=== PATIENT | female | born 1955 | race Caucasian/White ===

== ENCOUNTER 2016-07-06 08:05 | Inpatient (IN) | payer MEDICARE, MEDICAID ==
[~2016-07-06 08:05] MED LIST: VANCOMYCIN HCL 1 GM in DEXTROSE 5 % IN WATER 250 ML IV PRN; ceFAZolin SODIUM 1 GM VIAL IV PRN
--- NOTE | 2016-07-06 10:42 | PREOP NOTE ---
Preoperative Progress Note - Preoperative Changes Changes to Preop Condition?: No Changes
[2016-07-06] MEDS: RINGERS SOLUTION,LACTATED 1,000 ML IV PRN ×2 (10:44→11:10)
[2016-07-06] MEDS: ROPIVACAINE HCL/PF 100 MG, KETOROLAC TROMETHAMINE 30 MG, EPINEPHrine 0.2 MG in NORMAL S... IJ PRN ×2 (12:16→12:30)
[2016-07-06] MEDS: TRANEXAMIC ACID 1,000 MG in NORMAL SALINE 100 ML IV PRN ×3 (12:16→12:45)
[2016-07-06] MEDS ORDERED: RINGERS SOLUTION,LACTATED 1,000 ML IV ONE (13:10)
[2016-07-06] MEDS ORDERED: PROMETHAZINE HCL 5 MG in DEXTROSE 5 % IN WATER 50 ML IV PRN ×2 (13:24)
[2016-07-06] MEDS ORDERED: MAG HYDROX/ALUMINUM HYD/SIMETH 30 ML UDC PO PRN (13:24)
[2016-07-06] MEDS ORDERED: ONDANSETRON HCL/PF 2 MG/ML VIAL IV PRN (13:24)
[2016-07-06] MEDS ORDERED: diphenhydrAMINE HCL 50 MG/ML VIAL IV PRN (13:24)
[2016-07-06] MEDS ORDERED: MAGNESIUM HYDROXIDE 30 ML UDC PO PRN (13:24)
[2016-07-06] MEDS ORDERED: HYDROmorphone HCL 1 MG/ML DISP.SYRIN IV PRN (13:24)
[2016-07-06] MEDS ORDERED: ACETAMINOPHEN 500 MG TABLET PO PRN (13:24)
[2016-07-06] MEDS ORDERED: ZOLPIDEM TARTRATE 5 MG TABLET PO PRN (13:24)
[2016-07-06] MEDS ORDERED: METHOCARBAMOL 500 MG TABLET PO PRN (13:26)
[2016-07-06] MEDS ORDERED: ALBUTEROL SULFATE 2.5 MG/0.5 ML VIAL.NEB IH PRN (13:26)
[2016-07-06] MEDS ORDERED: clonazePAM 0.5 MG TABLET PO PRN (13:30)
--- NOTE | 2016-07-06 13:31 | OR ---
Operative Report - Dictated Report Narrative: Date: 07/06/2016 Preoperative diagnosis: Right Knee degenerative joint disease. Postoperative diagnosis: Right Knee degenerative joint disease. Procedure: Right Total knee arthroplasty. Surgeon: Evaristo Ferreira M.D. Decontaminator: Darryl Goldman PA-C Anesthesia: Spinal with regional block and local periarticular joint injection. Complications: None Specimens: Bone for disposal. Estimated blood loss: Minimal. Tourniquet time: 85 Minutes at 350 millimeters of mercury. Retained implants: Depuy Attune size 7 right lugged cemented posterior stabilized femoral component. Size 6 fixed-bearing cemented tibial platform. 7 by 5 millimeter posterior stabilized cross-linked tibial insert. 38 millimeter medialized patella button. Indications: Mrs. Scott is a 60-year-old female who had long-standing bilateral knee arthrosis who previously underwent a left total knee arthroplasty. She had persistent right knee pain wished to proceed with a right total knee arthroplasty. This patient was followed in my clinic for period of time with significant complaints of right knee pain consistent with arthritic changes. They had failed conservative measures including, but not limited to, activity modification, passage of time, medications, and other conservative measures. Patient wished to proceed with surgical treatment. The risks, benefits, and alternatives were discussed in clinic. The risks of , blood clots, bleeding, infection, nerve/tendon blood vessel/ injury, malposition of components, intraoperative fracture, postoperative limited range of motion, persistent pain, failure of components, and need for additional procedures. Patient wished to proceed consent was obtained after answering all questions. Procedure: After marking the correct extremity on the floor, the patient was taken to the operating room. A timeout was performed. IV antibiotics consisting of Ancef and vancomycin were administered prior to the procedure. A regional followed by spinal anesthetic was induced by anesthesia on the operative table with all bony prominences well-padded. Patrick catheter was placed, and a bump was placed under the operative side buttock. SCDs and SWATI hose were utilized on the nonoperative leg. A well-padded tourniquet was applied to the operative thigh. The operative leg was then pre-scrubbed with alcoho,l prepped, and draped in a standard sterile fashion. After exsanguinating the extremity with an Esmarch bandage, the tourniquet was inflated. After marking out the anterior knee for standard incision centered over the patella, the skin was incised and dissected down to the joint retinaculum. The joint retinaculum was marked out as well as the horizontal axis of the patella, and a standard medial parapatellar arthrotomy was then made. The most proximal aspect of the quadriceps tendon and the patella tendon insertion were protected from release. A partial synovectomy was performed as well as a resection of the infrapatellar fat pad. The distal femoral fat pad proximal to the trochlea was also resected using cautery. The soft tissues were elevated off the medial aspect of the proximal tibia using a Nieto elevator ensuring that we did not transect the medial collateral ligament. Upon initial evaluation range of motion was approximately 0 degrees to 105 degrees of flexion. There were signs of advanced arthrosis in the medial, lateral, and patellofemoral joint spaces. There were large marginal osteophytes which were removed with a rongeur. The knee was hyperflexed and the patella was tucked laterally. Protecting the surrounding soft tissues with Homans, an entry drill was placed down the femoral canal using Whitesides line for guidance into the entry point. The intramedullary femoral alignment chaparro was utilized in order to cut the distal femur in 5 degrees of valgus resecting 10 millimeters of bone. Next the distal femur was sized to a size 7. A posterior referencing guide was utilized to place the distal femoral cutting block in 3 degrees of external rotation. This was pinned into place. The rotation was confirmed both visually and based on anatomic landmarks. The 4 in 1 cutting jig of the appropriate size was utilized in order to make all bony cuts. The angle wing was used to ensure no notching. Retractors were utilized in order to protect surrounding soft tissues. This cut did not result in any excessive notching. We then cut the box centered over the distal femur. This allowed for resection of the anterior and posterior cruciate ligaments. I then turned my attention to the preparation of the tibia. Using an extra medullary tibial alignment chaparro, 4 millimeters of bone was resected off the medial articular surface. This was made perpendicular to the mechanical axis of the joint with the alignment chaparro centered over the ankle mortise. The alignment chaparro was checked and was noted to be parallel to the mechanical axis, centered over the medial one third of the tibial tubercle, paralleling the anterior surface of the tibia. We then turned our attention to the remaining meniscus and soft tissues. These were removed while protecting the surrounding ligaments and soft tissues. The marginal osteophytes off the anterior, posterior, medial, lateral aspects of the femur and tibia were removed. The tibia was sized out to a size 6. Next the tibia was drilled and punched in an externally rotated position. Next the trial femur and a series of tibial inserts were utilized in order to allow for full extension and maximal flexion. It was found that a 5 millimeter insert gave the best range of motion and stability at multiple flexion points as well as at full extension there was less than 2 mm of gapping both medially and laterally. There is minimal anterior translation with the knee at 90 degrees of flexion and no signs of being able to dislocate the knee. The patella was then prepared. The initial thickness was 21 millimeters. This was reamed down to 11 millimeters parallel to the anterior surface of the patella. It was sized out to a size 38 medialized patella button. This was then drilled and trialed. Without any medial restraint the patella tracked appropriately and did not sublux or dislocate. At this point, it was felt these were the appropriate sized implants, and all trials were removed. The standard periarticular joint injection consisting of ropivacaine, Toradol, and epinephrine were injected into the periarticular joint tissues. The bony surfaces were thoroughly irrigated with a pulsatile- suction saline irrigation device. A bone plug from the prior resected anterior chamfer cut was placed into the drill hole at the distal femur. The bony surfaces were then dried in preparation for placement of the implants. The cement was vacuum mixed per the superintendent marine oil [employer]'s instructions. The cement was placed on the dry bony surfaces and posterior aspect of the implants. The implants were impacted into place, removing all extruded cement. At this point anesthesia administered tranexamic acid per protocol intravenously. The knee was placed in extension with axial loading with the trial insert while the cement cured. Once the cement cured, all remaining extruded cement was removed. The knee was placed through a range of motion with the trial insert to ensure appropriate range of motion and stability. Final range of motion was approximately 0 to 115 degrees. The knee was again thoroughly irrigated with pulsatile saline lavage. The final polyethylene insert was then impacted into place ensuring no retained soft tissues. The remaining periarticular joint injection was injected. A medium Hemovac drain was placed exiting superior laterally. The knee was then placed over a triangle and the arthrotomy was closed with interrupted #1 Vicryl after thoroughly irrigating the joint. The deep and subcutaneous tissues were closed with interrupted oh and 3-0 Vicryl respectively. Skin was closed with a running subcutaneous 3-0 Monocryl and kelton. Xeroform, 4 x 4's, ABD, Sof-Rol, and a full leg Kan wrap were applied. All sponge, needle, blade, and instrument counts were correct prior to closing the wounds. Postoperative condition: The patient was awoken and transferred to the postanesthesia care unit in stable condition. Plan is to be admitted to the inpatient medical/surgical floor postoperatively for 24 hours of IV antibiotics , physical therapy, occupational therapy, and medical comanagement. Patient will be weightbearing as tolerated with range of motion as tolerated. DVT prophylaxis will be with SCDs, SWATI hose, and pharmacological anticoagulation. Anticipated hospital stay is approximately 2-4 days.
[2016-07-06] MEDS: DEXTROSE 5%-LACTATED RINGERS 1,000 ML IV PRN ×2 (15:52→23:39)
[2016-07-06] MEDS: KETOROLAC TROMETHAMINE 15 MG/ML VIAL IV SCH ×2 (16:51→23:41)
[2016-07-06] MEDS: GABAPENTIN 600 MG TABLET PO SCH (16:54)
[2016-07-06] MEDS: oxyCODONE HCL/ACETAMINOPHEN 1 TAB TABLET PO PRN ×2 (16:56→21:45)
[2016-07-06] MEDS: FLUTICASONE/SALMETEROL 14 PUFF DISK.W.DEV IH SCH (21:41)
[2016-07-06] MEDS: PANTOPRAZOLE SODIUM 40 MG TABLET.EC PO SCH (21:46)
[2016-07-06] MEDS: SENNOSIDES/DOCUSATE SODIUM 1 TAB TABLET PO SCH (21:46)
[2016-07-06] MEDS: MORPHINE SULFATE 15 MG TABLET.SA PO SCH (21:46)
[2016-07-06] MEDS: SIMVASTATIN 5 MG TABLET PO SCH (21:48)
[2016-07-06] MEDS ORDERED: VANCOMYCIN HCL 1 GM in DEXTROSE 5 % IN WATER 250 ML IV SCH ×2 (23:24)
[2016-07-07] MEDS: KETOROLAC TROMETHAMINE 15 MG/ML VIAL IV SCH ×5 (00:28→22:58)
[2016-07-07 05:49] LABS: Hematocrit 30.9 % (37.0-47.0); Hemoglobin 9.5 gm/dL (12.5-16.0); Mean Cell Volume 83.7 fl (78-100); Mean Corpuscular Hemoglobin 25.7 pg (27-31); Mean Corpuscular Hgb Conc 30.7 g/dl (32-36); Mean Platelet Volume 9.1 fl (6.0-9.5); Platelet Count 299 K/mm3 (150-450); Red Blood Count 3.69 M/mm3 (4.2-5.4); Red Cell Distribution Width 16.3 % (11.5-14.0); White Blood Count 9.2 K/mm3 (4.0-10.5)
[2016-07-07 06:00] LABS: Anion Gap 10.8 mmol/L (6.8-13.8); BUN/Creatinine Ratio 15.7 (9.0-21.6); Calcium * 8.5 mg/dL (7.9-10.9); Carbon Dioxide 27.1 mmol/L (24-32.6); Estimated Creat Clear 45.2; Potassium 3.9 mmol/L (3.4-4.6)
[2016-07-07] MEDS: PANTOPRAZOLE SODIUM 40 MG TABLET.EC PO SCH ×2 (06:48→20:39)
[2016-07-07] MEDS: MULTIVITAMINS 1 CAP CAPSULE PO SCH (08:39)
[2016-07-07] MEDS: CALCIUM CARBONATE/VITAMIN D3 1 TAB TABLET PO SCH (08:39)
[2016-07-07] MEDS: amLODIPine BESYLATE 10 MG TABLET PO SCH (08:39)
[2016-07-07] MEDS: DULoxetine HCL 30 MG CAPSULE.SA PO SCH (08:39)
[2016-07-07] MEDS: oxyCODONE HCL/ACETAMINOPHEN 1 TAB TABLET PO PRN (08:40)
[2016-07-07] MEDS: MORPHINE SULFATE 15 MG TABLET.SA PO SCH ×2 (08:40→20:44)
[2016-07-07] MEDS: FLUTICASONE/SALMETEROL 14 PUFF DISK.W.DEV IH SCH ×2 (08:40→20:38)
[2016-07-07] MEDS: TIOTROPIUM BROMIDE 5 CAP INHALER IH SCH (08:41)
[2016-07-07] MEDS: FUROSEMIDE 40 MG TABLET PO SCH (08:45)
[2016-07-07] MEDS: ENOXAPARIN SODIUM 40 MG/0.4 ML SYRG SC SCH (12:02)
[2016-07-07] MEDS ORDERED: HYDROcodone/ACETAMINOPHEN 1 EACH TABLET PO PRN (13:57)
--- NOTE | 2016-07-07 14:41 | PN ---
Subjective - Date and Time Seen Date: 07/07/16 Time: 08:00 Subjective Narrative: Subjective: Reports no concerns. Was able to get to the chair with therapy. Pain is well-controlled. Voiding without any complications. Tolerating by mouth intake. Denies any nausea or vomiting. Denies calf pain. Slept well. Physical exam: Alert and oriented to person, place and time Right lower Extremity: Palpable dorsalis pedis pulse. Sensation grossly intact to light touch. Dressings clean and dry. Able to flex and extend ankle and toes. No excessive drainage. Calf and thigh are soft and nontender. Assessment: Postop day 1 status post right total knee arthroplasty. Plan: Continue with physical and occupational therapy weightbearing as tolerated. Continue with anticoagulation. 24 hours postoperative prophylactic antibiotics. Pain control with goal to rely on oral medications. Continue bowel regimen. Will need 6 weeks with walker or assitive device to protect joint while ambulating during the recovery process. Discharge planning. Discontinue drain and Aptrick catheter. Repeat labs in a.m. Objective - Vitals Vitals: Last Vital Signs Temp 36.7 C 07/07/16 10:21 Pulse 86 07/07/16 10:21 Resp 20 07/07/16 10:21 BP 106/66 07/07/16 10:21 Pulse Ox 94 07/07/16 10:21 - Abnormal Lab Findings Abnormal Lab Findings: Abnormal Lab Results 07/07/16 07/07/16 Range/Units 05:39 05:39 RBC 3.69 L (4.2-5.4) M/mm3 Hgb 9.5 L (12.5-16.0) gm/dL Hct 30.9 L (37.0-47.0) % MCH 25.7 L (27-31) pg MCHC 30.7 L (32-36) g/dl RDW 16.3 H (11.5-14.0) % Est GFR (Non-Af Amer) 55 L (60-130) mL/min Random Glucose 116 H (70-110) mg/dL Cauti Physician Documentation - Urinary Catheter Management Urethral (Patrick) Date of Insertion: 07/06/16 Time of Insertion: 11:40 Date of Removal: 07/07/16 Time of Removal: 07:00 Assessment/Plan - Problems/Diagnosis (1) S/P total knee arthroplasty Problem: Acute (2) Acute blood loss anemia Problem: Acute (3) Asthma Problem: Chronic Qualifiers: Asthma severity: mild intermittent (4) Hypertension Problem: Chronic Qualifiers: Hypertension type: essential hypertension Qualified Code(s): I10 - Essential (primary) hypertension (5) Obesity Problem: Chronic Qualifiers: Obesity type: due to excess calories Obesity severity: morbid Qualified Code(s): E66.01 - Morbid (severe) obesity due to excess calories (6) OCD (obsessive compulsive disorder) Problem: Chronic (7) Urinary incontinence Problem: Chronic (8) Hyperlipidemia Problem: Chronic
[2016-07-07] MEDS: GABAPENTIN 600 MG TABLET PO SCH (16:35)
[2016-07-07] MEDS: SENNOSIDES/DOCUSATE SODIUM 1 TAB TABLET PO SCH (20:39)
[2016-07-07] MEDS: SIMVASTATIN 5 MG TABLET PO SCH (20:40)
[2016-07-08] MEDS: KETOROLAC TROMETHAMINE 15 MG/ML VIAL IV SCH ×2 (04:42→10:15)
[2016-07-08 05:48] LABS: Hematocrit 29.1 % (37.0-47.0); Hemoglobin 9.1 gm/dL (12.5-16.0); Mean Cell Volume 83.6 fl (78-100); Mean Corpuscular Hemoglobin 26.1 pg (27-31); Mean Corpuscular Hgb Conc 31.3 g/dl (32-36); Mean Platelet Volume 9.5 fl (6.0-9.5); Platelet Count 277 K/mm3 (150-450); Red Blood Count 3.48 M/mm3 (4.2-5.4); Red Cell Distribution Width 16.4 % (11.5-14.0); White Blood Count 6.8 K/mm3 (4.0-10.5)
[2016-07-08 06:00] LABS: Anion Gap 13.1 mmol/L (6.8-13.8); BUN/Creatinine Ratio 11.5 (9.0-21.6); Calcium * 8.2 mg/dL (7.9-10.9); Carbon Dioxide 29.6 mmol/L (24-32.6); Potassium 3.7 mmol/L (3.4-4.6)
[2016-07-08] MEDS: PANTOPRAZOLE SODIUM 40 MG TABLET.EC PO SCH (06:23)
[2016-07-08] MEDS: TIOTROPIUM BROMIDE 5 CAP INHALER IH SCH (08:56)
[2016-07-08] MEDS: FLUTICASONE/SALMETEROL 14 PUFF DISK.W.DEV IH SCH (08:57)
[2016-07-08] MEDS: CALCIUM CARBONATE/VITAMIN D3 1 TAB TABLET PO SCH (08:57)
[2016-07-08] MEDS: FUROSEMIDE 40 MG TABLET PO SCH (08:57)
[2016-07-08] MEDS: MORPHINE SULFATE 15 MG TABLET.SA PO SCH (08:57)
[2016-07-08] MEDS: DULoxetine HCL 30 MG CAPSULE.SA PO SCH (08:58)
[2016-07-08] MEDS: amLODIPine BESYLATE 10 MG TABLET PO SCH (08:58)
[2016-07-08] MEDS: MULTIVITAMINS 1 CAP CAPSULE PO SCH (08:58)
[2016-07-08 09:00] VITALS: BP 124/81
--- NOTE | 2016-07-08 10:27 | DS ---
(1) Acute blood loss anemia Problem: Acute (2) S/P total knee arthroplasty Problem: Acute (3) Asthma Problem: Chronic Qualifiers: Asthma severity: mild intermittent (4) Hyperlipidemia Problem: Chronic (5) Hypertension Problem: Chronic Qualifiers: Hypertension type: essential hypertension Qualified Code(s): I10 - Essential (primary) hypertension (6) OCD (obsessive compulsive disorder) Problem: Chronic (7) Obesity Problem: Chronic Qualifiers: Obesity type: due to excess calories Obesity severity: morbid Qualified Code(s): E66.01 - Morbid (severe) obesity due to excess calories (8) Urinary incontinence Problem: Chronic Description of Stay: Mrs. Scott was admitted to the floor after undergoing right total knee arthroplasty. Tolerated this well. Was admitted to the floor postoperatively for 24 hours of IV antibiotics, pain control, medical comanagement, and occupational and physical therapy. OT and PT were consulted to assist with activities of daily living and ambulation. Was made weightbearing as tolerated with range of motion as tolerated. Pain was initially controlled with IV regimen. This was transitioned to oral once tolerating a by mouth intake. Was resumed on home diet and medications. Had a Patrick catheter inserted and the operating room which was discontinued on postoperative day 1. A drain was placed intraoperatively into the knee which was discontinued on postoperative day 1. Lovenox SCD and SWATI hose were utilized for DVT prophylaxis. Vital signs remained stable to the hospital course. Serial labs were obtained which showed a final hemoglobin of 9.1 grams. BMP was reviewed and was stable. Physical examination throughout the hospital course showed an extremity that had sensation that was intact to light touch, palpable pulses, a benign wound, motor intact to the toes, ankle, and knee. Knee range of motion was approximately 0 degrees to 75 degrees. Once an oral pain regimen was tolerated and physical therapy goals were met, it was felt that they were stable for discharge to home. Instructions: Continue with weightbearing as tolerated and range of motion as tolerated. Keep the wound clean and dry. Cover with dry gauze and tape. Change every 2-3 days as needed. Cover wound while showering. Continue with physical therapy. Resume home diet. Report any fever over 101.5 Fahrenheit, uncontrolled pain, increased drainage, foul odor of drainage, new or increased calf pain or shortness of breath, or any other significant complaints. A 325mg dialy aspirin will be started after finishing anticoagulation if not allergic. Continue with SWATI hose on the operative extremity until instructed otherwise. No driving until instructed otherwise. Follow up in approximately 10-14 days. Procedures Performed: see notes below List Procedures: Right total knee arthroplasty Discharge Disposition: Home self care Disposition: Home self-care Condition: Good Referrals: Elena Brown MD [Primary Care Provider] - Prescriptions (Any new or edited meds): Albuterol Sulfate [Albuterol Sulfate 2.5 MG/0.5ML] 2.5 mg IH Q3H PRN #60 vial.neb PRN Reason: Shortness Of Breath Enoxaparin Sodium [Lovenox] 40 mg SC Q24H #8 disp.syrin HYDROcodone/ACETAMINOPHEN [[place] 5-325] 2 each PO Q4H PRN #90 tablet PRN Reason: Pain Morphine Sulfate [Ms Contin] 15 mg PO Q12H #30 tablet.sa Nebulizer/Compressor [Devilbiss Pulmoneb Lt Comp-Neb] 1 each MC PRN 30 Days Complete Home Medications List: Complete Home Medication List: Albuterol Sulfate [Proair Hfa] 2 puff IH Q3H PRN 06/15/16 Budesonide/Formoterol Fumarate [Symbicort 160-4.5 Mcg Inhaler] 2 puff IH BID Calcium Carb&Cit/Mag12/Vit D3 [Calcium 500 mg Tablet] 1 each PO DAILY 06/15/16 Duloxetine HCl [Cymbalta] 30 mg PO DAILY 06/15/16 Furosemide [Lasix] 40 mg PO DAILY 06/15/16 Gabapentin [Neurontin] 600 mg PO QPM 06/15/16 Lovastatin 10 mg PO HS 06/15/16 Methocarbamol [Robaxin] 500 mg PO Q6H PRN 06/15/16 Multivitamins [Multivitamin Santiago] 1 cap PO DAILY 06/15/16 Pantoprazole Sodium [Protonix] 40 mg PO BID 06/15/16 Tiotropium [place] [Spiriva] 1 cap IH DAILY 06/15/16 amLODIPine BESYLATE [Norvasc] 10 mg PO DAILY 06/15/16 clonazePAM [Klonopin] 0.5 mg PO HS PRN 06/15/16 Albuterol Sulfate [Albuterol Sulfate 2.5 MG/0.5ML] 2.5 mg IH Q3H PRN #60 vial.neb 07/08/16 Enoxaparin Sodium [Lovenox] 40 mg SC Q24H #8 disp.syrin 07/08/16 HYDROcodone/ACETAMINOPHEN [[place] 5-325] 2 each PO Q4H PRN #90 tablet 07/08/16 Morphine Sulfate [Ms Contin] 15 mg PO Q12H #30 tablet.sa 07/08/16 Nebulizer/Compressor [Devilbiss Pulmoneb Lt Comp-Neb] 1 each PRN 30 Days 01/14
[2016-07-08] MEDS: ENOXAPARIN SODIUM 40 MG/0.4 ML SYRG SC SCH (11:53)
== END 2016-07-08 12:50 | disposition home or self-care (01) | DRG 470 ==
LOC: MS 08:05
PROVIDERS: ADMIT Orthopaedic Surgery; ATTEND Orthopaedic Surgery
PROC: 0SRC0J9 Replacement of Right Knee Joint with Synthetic Substitute, Cemented, Open Approach (ICD-10-PCS; principal; 2016-07-06 11:45)
DX: M17.0 Bilateral primary osteoarthritis of knee (principal); Z68.43 Body mass index [BMI] 50.0-59.9, adult; D62 Acute posthemorrhagic anemia; I10 Essential (primary) hypertension; J45.20 Mild intermittent asthma, uncomplicated; J44.9 Chronic obstructive pulmonary disease, unspecified; E78.5 Hyperlipidemia, unspecified; R32 Unspecified urinary incontinence; E66.01 Morbid (severe) obesity due to excess calories; F42.9 Obsessive-compulsive disorder, unspecified; Z79.82 Long term (current) use of aspirin

== ENCOUNTER 2016-09-30 06:03 | Inpatient (IN) | payer MEDICARE, MEDICAID ==
[~2016-09-30 06:03] MED LIST changes: +MORPHINE SULFATE 15 MG TABLET.SA PO PRN; +ROPIVACAINE HCL/PF 100 MG, KETOROLAC TROMETHAMINE 30 MG, EPINEPHrine 0.2 MG in NORMAL S... IJ PRN; +TRANEXAMIC ACID 1,000 MG in NORMAL SALINE 100 ML IV PRN
--- OUTSIDE RECORDS SUMMARY | 2016-09-30 06:07 | XMS REPORT | Continuity of Care Document ---
:1955 Author Organization [facility] [place] [address] Care Team Providers Name Role Phone Elena Brown Primary Care Provider [phone] Source Comments This disclosure is being made pursuant to the Troppin program and maynot contain all information available regarding this patient.[facility] Active Allergies and Adverse Reactions Allergen Noted Date Severity Reactions Comments Codeine 08/07/2015 Other (See Comments) Chest pain Erythromycin 08/07/2015 Medium Nausea And Vomiting Current Medications Be aware that medications may not be up to date as of this document. Alwaysverify current medications with the patient. Prescription Sig. Disp. Refills Start Date End Date Status aspirin 81 MG tablet Take 81 mg by Active mouth daily. pantoprazole (PROTONIX) Take 40 mg by Active 40 MG tablet mouth daily. amLODIPine (NORVASC) 10 Take 10 mg by Active MG tablet mouth daily. CALCIUM PO Take 1,250 mg by Active mouth daily. clonazePAM (KLONOPIN) Take 0.5 mg by Active 0.5 MG tablet mouth nightly as needed for Anxiety. fluvoxaMINE (LUVOX) 100 Take 100 mg by Active MG tablet mouth every morning. Fluvoxamine Maleate Take 300 mg by Active (LUVOX) 150 MG capsule mouth nightly. ibuprofen Take 800 mg by Active (ADVIL,MOTRIN) 800 MG mouth 3 (three) tablet times daily as needed for Pain. ferrous sulfate 325 (65 Take 325 mg by Active FE) MG EC tablet mouth daily. lovastatin (MEVACOR) 10 Take 10 mg by Active MG tablet mouth nightly. methocarbamol (ROBAXIN) Take 1,000 mg by Active 500 MG tablet mouth 4 (four) times daily. Multiple Vitamin Take 1 tablet by Active (MULTI-VITAMIN DAILY mouth daily. PO) albuterol (PROAIR Inhale 2 puffs Active HFA;PROVENTIL into the lungs HFA;VENTOLIN HFA) 108 every 3 (three) (90 BASE) MCG/ACT hours as needed inhaler for Wheezing. budesonide-formoterol Inhale 2 puffs Active (SYMBICORT) 160-4.5 into the lungs 2 MCG/ACT inhaler (two) times daily. predniSONE (DELTASONE) 1 tablet bid for 7 tablet 0 08/12/2015 Active 20 MG tablet 2 days, then 1 tablet daily for 2 days, then 1/2 tablet daily for 2 days. traMADol (ULTRAM) 50 MG Take 1 tablet by 90 tablet 5 08/16/2015 Active tablet mouth 3 (three) times daily as needed for Pain. Active Problems Not on file Social History Tobacco Use Types Packs/Day Years Used Date Never Smoker Last Filed Vital Signs Vital Sign Reading Time Taken Blood Pressure 122/90 08/07/2015 3:44 PM [employer] Pulse 95 08/07/2015 3:44 PM [employer] Temperature - - Respiratory Rate - - Height 1.626 m (5' 4") 08/07/2015 3:44 PM [employer] Weight 134.265 kg (296 lb) 08/07/2015 3:44 PM [employer] Body Mass Index 50.78 08/07/2015 3:44 PM [employer] Oxygen Saturation - - Plan of Care Health Maintenance Due Date Last Done Comments Hepatitis C Screening 1972 Tetanus/Pertussis (1 - Tdap) 1973 Pap Smear 08/11/1975 Colonoscopy 2004 Mammogram 2004 Well Adult Visit 2004 Zoster Vaccine 60+ 2014 Influenza Immunization (#1) 2016 Results from Last 3 Months Not on file
--- OUTSIDE RECORDS SUMMARY | 2016-09-30 06:07 | XMS REPORT | Continuity of Care Document ---
:1955 Author Organization ([facility]) [place] [address] Phone [phone] Care Team Providers Name Role Phone Camron Vázquez Primary Care Provider [phone] Source Comments This disclosure is being made pursuant to the Care Everywhere program, applicable federal and state laws, and may not contain all informaitonavailable regarding this patient. ([facility]) Active Allergies and Adverse Reactions Allergen Noted Date Severity Reactions Comments Erythromycin Nausea & Vomiting Hydrocodone Nausea & Vomiting Phenyltoloxamine Nausea & Vomiting Current Medications Not on file Active Problems Not on file Social History Tobacco Use Types Packs/Day Years Used Date Never Assessed Last Filed Vital Signs Vital Sign Reading Time Taken Blood Pressure 117/84 08/09/2006 2:18 PM CDT Pulse 83 08/09/2006 2:18 PM CDT Temperature 36.4 C (97.52 F) 08/09/2006 2:18 PM CDT Respiratory Rate 16 08/09/2006 2:18 PM CDT Height 1.61 m (5' 3.38") 08/09/2006 2:18 PM CDT Weight 120.997 kg (266 lb 12 oz) 08/09/2006 2:18 PM CDT Body Mass Index 46.68 08/09/2006 2:18 PM CDT Oxygen Saturation - - Plan of Care Health Maintenance Due Date Last Done Comments Hepatitis B Vaccine (1 of 3 - Primary Series) 1955 Tdap Vaccine 1965 Lipid Disorder Screening 1972 Td Vaccine 1972 Cervical Cancer Screening 1984 Mammogram 1994 Colonoscopy 08/09/2004 Zoster Vaccine 2014 Influenza Vaccine: Seasonal (#1) 12/30/2015 HCV Screening Completed 05/17/1998 Results from Last 3 Months Not on file
[2016-09-30] MEDS: RINGERS SOLUTION,LACTATED 1,000 ML IV PRN ×2 (06:59→09:20)
[2016-09-30] MEDS ORDERED: PANTOPRAZOLE SODIUM 40 MG in NORMAL SALINE 100 ML IV ONE (09:26)
[2016-09-30] MEDS ORDERED: RINGERS SOLUTION,LACTATED 1,000 ML IV ONE ×2 (10:30→11:55)
[2016-09-30] MEDS ORDERED: PROMETHAZINE HCL 5 MG in DEXTROSE 5 % IN WATER 50 ML IV PRN ×2 (12:36)
[2016-09-30] MEDS ORDERED: HYDROmorphone HCL 1 MG/ML DISP.SYRIN IV PRN (12:36)
[2016-09-30] MEDS ORDERED: MAGNESIUM HYDROXIDE 30 ML UDC PO PRN (12:36)
[2016-09-30] MEDS ORDERED: ONDANSETRON HCL/PF 2 MG/ML VIAL IV PRN (12:36)
[2016-09-30] MEDS ORDERED: ACETAMINOPHEN 500 MG TABLET PO PRN (12:36)
[2016-09-30] MEDS ORDERED: MAG HYDROX/ALUMINUM HYD/SIMETH 30 ML UDC PO PRN (12:36)
[2016-09-30] MEDS ORDERED: oxyCODONE HCL/ACETAMINOPHEN 1 TAB TABLET PO PRN (12:36)
[2016-09-30] MEDS ORDERED: diphenhydrAMINE HCL 50 MG/ML VIAL IV PRN (12:36)
[2016-09-30] MEDS ORDERED: ZOLPIDEM TARTRATE 5 MG TABLET PO PRN (12:36)
[2016-09-30] MEDS ORDERED: TIOTROPIUM BROMIDE 5 CAP INHALER IH PRN (12:38)
[2016-09-30] MEDS ORDERED: FLUTICASONE/SALMETEROL 14 PUFF DISK.W.DEV IH PRN (12:38)
[2016-09-30] MEDS ORDERED: clonazePAM 1 MG TABLET PO PRN (12:38)
[2016-09-30] MEDS ORDERED: ALBUTEROL SULFATE 2.5 MG/3 ML VIAL.NEB IH PRN (12:38)
--- NOTE | 2016-09-30 12:43 | OR ---
Operative Report - Dictated Report Narrative: Date: 09/30/2016 Preoperative diagnosis: Left hip degenerative joint disease. Postoperative diagnosis: Left hip degenerative joint disease. Procedure: Left Total hip arthroplasty. (22 modifier due to morbid obesity requiring additional time, blood loss, assistance, and increased difficulty of performing the procedure) Surgeon: Evaristo Ferreira M.D. Toe Sewer: Darryl Goldman PA-C Anesthesia: Spinal and local periarticular joint injection. Complications: None Specimens: Bone for disposal. Estimated blood loss: 300 milliliters. Drains: Hemovac drain left hip, herrera catheter Retained implants: Depuy Marinette size 6 femoral stem high offset. Size 54 millimeter ouside diameter 3-hole Carrabelle Gription acetabular cup. 54 millimeter outside by 36 millimeter inside diameter highly cross-linked acetabular liner. 36 millimeter diameter + 0.5 millimeter cobalt chromium femoral head. Cancellous 6.5mm screw 25 and 30 millimeter length Indications: Mrs. 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 This patient was followed in my clinic for period of time with significant complaints of left hip pain consistent with arthritic changes. She failed conservative measures including but not limited to activity modification, passage of time, medications, and other conservative measures. Patient wished to proceed with surgical treatment. The risks, benefits, and alternatives were discussed in clinic. The risks of , blood clots, bleeding, infection, nerve/tendon blood vessel/ injury, malposition of components, dislocation and/ or instability of joint, intraoperative fracture, postoperative limited range of motion, persistent pain, failure of components, and need for additional procedures. Patient wished to proceed. Consent was obtained after answering all questions. Procedure: After marking the correct extremity on the floor, the patient was taken to the operating room. A timeout was performed. IV antibiotics consisting of Ancef and vancomycin secondary to history of MRSA were administered prior to the procedure. A spinal anesthetic was induced by anesthesia. A Herrera catheter was inserted. The patient was then transitioned to a lateral position on a well-padded pegboard. An axillary roll was placed. The head was in neutral position. The non-operative down leg was well-padded with SCD and SWATI hose in place. The arms were supported and padded to protect from any undue pressure on the bony prominences and nerves. A well-padded anterior and posterior pelvic and chest posts were secured in order to maintain a stable position of the pelvis. This was placed so that the pelvis was perpendicular to the floor. The body was in line with the pelvis. Once it was felt that we had protected all the bony prominences and the patient was well secured with a safety belt as well, the leg was pre-scrubbed with alcohol, prepped and draped in a standard sterile fashion. A standard anterior lateral hip incision was marked out over the greater trochanter. Ioban drapes were then placed. The skin incision was then made. Sharp dissection with a scalpel utilizing cautery for hemostasis was carried out down to the gluteus and iliotibial band fascia. This was split in line with the skin incision. The greater trochanter bursa was excised. The anterior and posterior margins of the abductor tendon were identified. The anterior 1/2-1/3 of the tendon was tagged and reflected off the greater trochanter leaving a sleeve of tendon for repair at the completion of the case. This exposed the underlying hip joint capsule. A limb length stitch was placed in the skin and referencedd off a pari on the greater trochanter for evaluation of intraoperative limb lengths. An inverted T-type capsulotomy was made extending this up to the brim of the acetabulum. Using Homans to assist with elevation of the soft tissues off the anterior, superior, and inferior aspects of the femoral neck, the hip was then placed in a figure 4 position and the femoral head was dislocated. With the leg in an externally rotated and adducted position, the cutting flag was utilized in order to pari for a standard femoral neck cut approximately a fingerbreadth above the level of the lesser trochanter. This was done with reference to pre-operative films and overall alignment. This was done while protecting the surrounding soft tissues with Homans. The femoral head was then removed and sized for guidance on preparation of the acetabulum. It was noted that there was loss of articular cartilage on both the femoral head and weightbearing portions of the acetabulum. We then returned the leg to the table and turned our attention to the acetabulum. While protecting the surrounding soft tissues, the labrum and remaining tissue in the fovea were excised using a scalpel and cautery. A series of reamers up to size 54 millimeter were utilized to prepare the acetabulum. The final reamer had good purchase and exposed the bleeding subchondral bone. The acetabulum was then thoroughly irrigated ensuring that all bony and cartilaginous materials were removed, and the final acetabular shell was impacted into place. This was placed in approximately 45 degrees of abduction and 20 degrees of anteversion utilizing the outrigger and body axis for alignment. This had a good press fit. Two 6.5mm cancellous screw was placed in the superior posterior quadrant of the acetabulum. The shell was then thoroughly irrigated and the final polyethylene was impacted into place ensuring that it seated completely. This was then protected with a sponge while we returned our attention to the femur. With the leg in a figure 4 position, utilizing Homans for soft tissue protection , a box cutting osteotome, followed by Charnley awl, followed by serial reamers and broaches were utilized in order to prepare the femur. It was found that a size 6 broach gave good axial and rotational stability. The calcar reamer was utilized in order to clean up the cut edges. The proximal femur was visualized to ensure that there were no signs of fracture. A series of heads and necks were trialed. It was found that a high offset neck and a + 8.5 mm femoral head gave good overall stability. There was minimal longitudinal instability. With the leg in the position of sleep, the femoral head was well covered. Hip range of motion was able to reach full extension and external rotation to greater than 75 degrees prior to impingement along the posterior acetabulum. The hip was able to be flexed to greater than 90 degrees with internal rotation greater than 60 degrees prior to anterior impingement. The limb lengths were near equal based on comparison to the contralateral side and the prior placed limb length stitch. At this point it was felt these were the appropriately sized femoral components as well as neck and femoral head. The trial implants were removed. The femur was thoroughly irrigated. The final implants were impacted into place, and the hip was reduced. After ensuring that there was no damage to the proximal femur , the standard periarticular joint injection of ropivacaine, Toradol, and epinephrine were injected into the joint capsule and surrounding soft tissues. Anesthesia then administered intravenous tranexamic acid. The capsule was repaired with a single interrupted #1 Vicryl. The abductor tendon was repaired to the greater trochanter utilizing #5 Ethibond through drill holes. This was oversewn with #1 Vicryl. The fascia was closed with interrupted #1 Vicryl. A medium Hemovac drain was placed above the fascia exiting superiorly. The wounds were thoroughly irrigated as we closed in layers. The deep and subcutaneous fat layers were closed with 0 and 3-0 Vicryl respectively. The subcutaneous tissue was closed with a running 3-0 Vicryl and the skin with kelton. All sponge, needle, blade, and instrument counts were correct prior to closing the wounds. Sterile dressings consisting of Xeroform, 4 x 4's, ABD, and tape were applied. The patient was awoken and transferred to her hospital bed and then to the postanesthesia care unit in stable condition. Postoperative condition: The plan is to admit to the medical/surgical inpatient floor postoperatively. There will be a projected 2 to 4 day hospital stay. Postoperatively 24 hours of IV antibiotics, pain control, physical therapy, occupational therapy, and medical comanagement will be utilized. Patient will be weightbearing as tolerated with anterior hip precautions. Postoperative films will be obtained in the recovery room.
[2016-09-30] MEDS: DEXTROSE 5%-LACTATED RINGERS 1,000 ML IV PRN ×2 (14:00→22:06)
[2016-09-30] MEDS: KETOROLAC TROMETHAMINE 15 MG/ML VIAL IV SCH ×2 (14:33→18:37)
[2016-09-30] MEDS: GABAPENTIN 300 MG CAPSULE PO SCH ×2 (17:33)
[2016-09-30] MEDS: MORPHINE SULFATE 15 MG TABLET.SA PO SCH (21:07)
[2016-09-30] MEDS: ROSUVASTATIN CALCIUM 10 MG TABLET PO SCH (21:08)
[2016-09-30] MEDS: PANTOPRAZOLE SODIUM 40 MG TABLET.EC PO SCH (21:08)
[2016-09-30] MEDS: SENNOSIDES/DOCUSATE SODIUM 1 TAB TABLET PO SCH (21:17)
[2016-09-30] MEDS ORDERED: VANCOMYCIN HCL 1 GM in DEXTROSE 5 % IN WATER 250 ML IV SCH ×2 (22:37)
[2016-10-01] MEDS: KETOROLAC TROMETHAMINE 15 MG/ML VIAL IV SCH ×4 (00:06→18:09)
[2016-10-01] MEDS: HYDROcodone/ACETAMINOPHEN 1 EACH TABLET PO PRN ×3 (01:57→15:31)
[2016-10-01 05:11] LABS: Hematocrit 25.2 % (37.0-47.0); Mean Corpuscular Hemoglobin 25.1 pg (27-31); Mean Platelet Volume 9.2 fl (6.0-9.5); Platelet Count 272 K/mm3 (150-450); Red Blood Count 3.11 M/mm3 (4.2-5.4); Red Cell Distribution Width 15.6 % (11.5-14.0); White Blood Count 7.3 K/mm3 (4.0-10.5)
[2016-10-01 05:24] LABS: Anion Gap 8.7 mmol/L (6.8-13.8); BUN/Creatinine Ratio 12.6 (9.0-21.6); Calcium * 8.5 mg/dL (7.9-10.9); Carbon Dioxide 31.1 mmol/L (24-32.6); Estimated Creat Clear 40.5; Potassium 3.8 mmol/L (3.4-4.6)
[2016-10-01 05:30] LABS: Hemoglobin 7.8 gm/dL (12.5-16.0)
[2016-10-01] MEDS: GABAPENTIN 300 MG CAPSULE PO SCH ×4 (06:42→16:59)
--- NOTE | 2016-10-01 08:03 | PN ---
Subjective - Date and Time Seen Date: 10/01/16 Time: 08:00 Subjective Narrative: Subjective: Reports mild discomfort. She has not been up with therapy. Pain is well-controlled. Voiding without any complications. Tolerating by mouth intake. Denies any nausea or vomiting. Denies calf pain. Slept well. Physical exam: Alert and oriented to person, place and time Left lower Extremity: Palpable dorsalis pedis pulse. Sensation grossly intact to light touch. Dressings when driving. Able to flex and extend ankle and toes. No excessive drainage. Calf and thigh are soft and nontender. Assessment: Postop day 1 status post left total hip arthroplasty. Plan: Continue with physical and occupational therapy weightbearing as tolerated. Continue with anticoagulation. 24 hours postoperative prophylactic antibiotics. Pain control with goal to rely on oral medications. Continue bowel regimen. Will need 6 weeks with walker or assitive device to protect joint while ambulating during the recovery process. Discharge planning. Discontinue Patrick catheter. She has noted anemia from acute blood loss compared to preoperative hemoglobin level. We'll plan for 2 units packed red blood cells today. She should continue to progress with therapy while getting blood as there is no contraindication to doing this. Repeat labs in a.m. Objective - Vitals Vitals: Last Vital Signs Temp 37 C 10/01/16 07:10 Pulse 92 10/01/16 07:10 Resp 20 10/01/16 07:10 BP 121/68 10/01/16 07:10 Pulse Ox 98 10/01/16 07:10 - Abnormal Lab Findings Abnormal Lab Findings: Abnormal Lab Results 10/01/16 10/01/16 Range/Units 05:02 05:02 RBC 3.11 L (4.2-5.4) M/mm3 Hgb 7.8 L* D (12.5-16.0) gm/dL Hct 25.2 L (37.0-47.0) % MCH 25.1 L (27-31) pg MCHC 31.0 L (32-36) g/dl RDW 15.6 H (11.5-14.0) % Est GFR (Non-Af Amer) 49 L (60-130) mL/min Random Glucose 121 H (70-110) mg/dL Cauti Physician Documentation - Urinary Catheter Management Urethral (Patrick) Date of Insertion: 09/30/16 Time of Insertion: 10:00 Assessment/Plan - Problems/Diagnosis (1) Status post total hip replacement, left Problem: Acute (2) Acute blood loss anemia Problem: Acute (3) Asthma Problem: Chronic (4) Hyperlipidemia Problem: Chronic (5) Hypertension Problem: Chronic Qualifiers: (6) OCD (obsessive compulsive disorder) Problem: Chronic (7) Obesity Problem: Chronic Qualifiers: Obesity severity: morbid (8) Urinary incontinence Problem: Chronic
[2016-10-01] MEDS: MORPHINE SULFATE 15 MG TABLET.SA PO SCH ×2 (09:20→21:05)
[2016-10-01] MEDS: FUROSEMIDE 40 MG TABLET PO SCH (09:23)
[2016-10-01] MEDS: CALCIUM CARBONATE 500 MG TAB.CHEW PO SCH (09:23)
[2016-10-01] MEDS: amLODIPine BESYLATE 10 MG TABLET PO SCH (09:23)
[2016-10-01] MEDS: PANTOPRAZOLE SODIUM 40 MG TABLET.EC PO SCH ×2 (09:23→21:06)
[2016-10-01] MEDS: MULTIVITAMINS 1 CAP CAPSULE PO SCH (09:23)
[2016-10-01] MEDS: ENOXAPARIN SODIUM 40 MG/0.4 ML SYRG SC SCH (11:41)
[2016-10-01] MEDS ORDERED: FLUTICASONE/SALMETEROL 14 PUFF DISK.W.DEV IH PRN (12:00)
[2016-10-01] MEDS: ROSUVASTATIN CALCIUM 10 MG TABLET PO SCH (21:06)
[2016-10-01] MEDS: SENNOSIDES/DOCUSATE SODIUM 1 TAB TABLET PO SCH (21:06)
[2016-10-02] MEDS: KETOROLAC TROMETHAMINE 15 MG/ML VIAL IV SCH ×2 (00:41→06:30)
[2016-10-02] MEDS: HYDROcodone/ACETAMINOPHEN 1 EACH TABLET PO PRN ×2 (03:37→11:08)
[2016-10-02 05:40] LABS: Hematocrit 28.6 % (37.0-47.0); Mean Cell Volume 80.6 fl (78-100); Mean Corpuscular Hemoglobin 25.4 pg (27-31); Mean Corpuscular Hgb Conc 31.5 g/dl (32-36); Mean Platelet Volume 9.5 fl (6.0-9.5); Platelet Count 264 K/mm3 (150-450); Red Blood Count 3.55 M/mm3 (4.2-5.4); Red Cell Distribution Width 15.2 % (11.5-14.0); White Blood Count 8.4 K/mm3 (4.0-10.5)
[2016-10-02 06:03] LABS: Anion Gap 8.6 mmol/L (6.8-13.8); Calcium * 8.6 mg/dL (7.9-10.9); Carbon Dioxide 31.6 mmol/L (24-32.6); Estimated Creat Clear 40.2; Potassium 3.2 mmol/L (3.4-4.6)
[2016-10-02] MEDS: GABAPENTIN 300 MG CAPSULE PO SCH ×2 (06:29→11:09)
[2016-10-02] MEDS: MULTIVITAMINS 1 CAP CAPSULE PO SCH (08:55)
[2016-10-02] MEDS: PANTOPRAZOLE SODIUM 40 MG TABLET.EC PO SCH (08:55)
[2016-10-02] MEDS: CALCIUM CARBONATE 500 MG TAB.CHEW PO SCH (08:55)
[2016-10-02] MEDS: FUROSEMIDE 40 MG TABLET PO SCH (08:55)
[2016-10-02] MEDS: amLODIPine BESYLATE 10 MG TABLET PO SCH (08:55)
[2016-10-02] MEDS: MORPHINE SULFATE 15 MG TABLET.SA PO SCH (08:56)
[2016-10-02 10:33] VITALS: BP 124/68
[2016-10-02] MEDS: ENOXAPARIN SODIUM 40 MG/0.4 ML SYRG SC SCH (11:09)
--- NOTE | 2016-10-02 12:59 | DS ---
(1) Status post total hip replacement, left Problem: Acute (2) Acute blood loss anemia Problem: Acute (3) Asthma Problem: Chronic (4) Hyperlipidemia Problem: Chronic (5) Hypertension Problem: Chronic Qualifiers: (6) OCD (obsessive compulsive disorder) Problem: Chronic (7) Obesity Problem: Chronic Qualifiers: Obesity severity: morbid (8) Urinary incontinence Problem: Chronic Description of Stay: Mrs. Scott was admitted to the floor after undergoing left total hip arthroplasty. Tolerated this well. Was admitted to the floor postoperatively for 24 hours of IV antibiotics, pain control, medical comanagement, and occupational and physical therapy. OT and PT were consulted to assist with activities of daily living and ambulation. Was made weightbearing as tolerated with anterior hip precautions. Pain was initially controlled with IV regimen. This was transitioned to oral once tolerating a by mouth intake. Was resumed on home diet and medications. Had a Patrick catheter inserted and the operating room which was discontinued on postoperative day 1. A drain was placed intraoperatively into the hip which was discontinued on postoperative day 2. Lovenox SCD and SWATI hose were utilized for DVT prophylaxis. Vital signs remained stable to the hospital course. Serial labs were obtained which showed a final hemoglobin of 9.0 grams after transfusion of 2 units packed red blood cells. BMP was reviewed and was stable. Physical examination throughout the hospital course showed an extremity that had sensation that was intact to light touch, palpable pulses, a benign wound, motor intact to the toes, ankle, and knee. Once an oral pain regimen was tolerated and physical therapy goals were met, it was felt that they were stable for discharge to home. Instructions: Continue with weightbearing as tolerated and anterior hip cautions and no active abduction. Keep the wound clean and dry. Cover with dry gauze and tape. Change every 2-3 days as needed. Cover wound while showering. Continue with physical therapy. Resume home diet. Report any fever over 101.5 Fahrenheit, uncontrolled pain, increased drainage, foul odor of drainage, new or increased calf pain or shortness of breath, or any other significant complaints. A 325mg dialy aspirin will be started after finishing anticoagulation if not allergic. Continue with SWATI hose on the operative extremity until instructed otherwise. No driving until instructed otherwise. Follow up in approximately 10-14 days. Procedures Performed: see notes below List Procedures: Left total hip arthroplasty, transfusion 2 units packed red blood cells Discharge Disposition: Home self care Disposition: Home self-care Condition: Good Discharge Activity: Weight bearing, Other - anterior hip precautions with no active abduction Discharge Diet: General/regular food Mcfp Therapy: Physicial Therapy Referrals: Glenis Truong ARNP [Primary Care Provider] - Additional Patient Instructions (free text): Follow-up in the office with Dr. Ferreira on 10/15/16@10:15am. [facility]. Please call report to [phone]. Please fax D/C orders including face to face and H&P to [phone]. Prescriptions (Any new or edited meds): Enoxaparin Sodium [Lovenox] 40 mg SC Q24H #7 disp.syrin HYDROcodone/ACETAMINOPHEN [Havana 5-325] 2 each PO Q6H PRN #90 tablet PRN Reason: Pain Morphine Sulfate [Ms Contin] 15 mg PO Q12H #20 tablet.sa Complete Home Medications List: Complete Home Medication List: Albuterol Sulfate [Proair Hfa] 2 puff IH Q3H PRN 06/15/16 Budesonide/Formoterol Fumarate [Symbicort 160-4.5 Mcg Inhaler] 2 puff IH BID PRN 06/15/16 Furosemide [Lasix] 40 mg PO DAILY 06/15/16 Gabapentin [Neurontin] 600 mg PO QPM 06/15/16 Lovastatin 10 mg PO HS 06/15/16 Multivitamins [Multivitamin Santiago] 1 cap PO DAILY 06/15/16 Pantoprazole Sodium [Protonix] 40 mg PO BID 06/15/16 Tiotropium Perris [Spiriva] 1 cap IH DAILY PRN 06/15/16 amLODIPine BESYLATE [Norvasc] 10 mg PO DAILY 06/15/16 clonazePAM [Klonopin] 1 mg PO HS PRN 06/15/16 Albuterol Sulfate [Albuterol Sulfate 2.5 MG/0.5ML] 2.5 mg IH Q3H PRN #60 vial.neb 07/08/16 HYDROcodone/ACETAMINOPHEN [Havana 5-325] 2 each PO Q4H PRN #90 tablet 07/08/16 Calcium Carbonate [Calcium] 500 mg PO DAILY 09/21/16 Gabapentin 300 mg PO AC 09/21/16 Enoxaparin Sodium [Lovenox] 40 mg SC Q24H #7 disp.syrin 10/02/16 Ferrous Sulfate 325 mg PO TIDWM tablet 10/02/16 HYDROcodone/ACETAMINOPHEN [Havana 5-325] 2 each PO Q6H PRN #90 tablet 10/02/16 Morphine Sulfate [Ms Contin] 15 mg PO Q12H #20 tablet.sa 10/02/16 Sennosides/Docusate Sodium [Senokot-S] 2 tab PO HS tablet 10/02/16
[2016-10-02] MEDS ORDERED: FERROUS SULFATE 325 MG TABLET PO SCH (13:00)
== END 2016-10-02 14:35 | disposition home health service (06) | DRG 470 ==
LOC: MS 06:03
PROVIDERS: ADMIT Orthopaedic Surgery; ATTEND Orthopaedic Surgery
PROC: 0SRB0JZ Replacement of Left Hip Joint with Synthetic Substitute, Open Approach (ICD-10-PCS; principal; 2016-09-30 09:20)
DX: M16.12 Unilateral primary osteoarthritis, left hip (principal); Z68.42 Body mass index [BMI] 45.0-49.9, adult; D62 Acute posthemorrhagic anemia; E66.01 Morbid (severe) obesity due to excess calories; F42.9 Obsessive-compulsive disorder, unspecified; R32 Unspecified urinary incontinence
CPT/HCPCS: 27130; 36415; 73502; 80048; 85027; 86850; 86900; 97110; 97116; 97162; 97165; 97535; P9016

== ENCOUNTER 2016-12-21 10:01 | Inpatient (IN) | payer MEDICARE, MEDICAID ==
[~2016-12-21 10:01] MED LIST changes: +RINGER'S SOLUTION,LACTATED 1,000 ML IV PRN; +ROPIVACAINE HCL/PF 100 MG, EPINEPHrine 0.2 MG, KETOROLAC TROMETHAMINE 30 MG in NORMAL S... IJ PRN; -ROPIVACAINE HCL/PF 100 MG, KETOROLAC TROMETHAMINE 30 MG, EPINEPHrine 0.2 MG in NORMAL S... IJ PRN; -TRANEXAMIC ACID 1,000 MG in NORMAL SALINE 100 ML IV PRN
--- NOTE | 2016-12-21 10:17 | PREOP NOTE ---
Preoperative Progress Note - Preoperative Changes Changes to Preop Condition?: No Changes
[2016-12-21] MEDS ORDERED: RINGER'S SOLUTION,LACTATED 1,000 ML IV ONE ×2 (14:00→14:50)
--- NOTE | 2016-12-21 15:46 | OR ---
Anesthesia Procedure Note - Anesthesia Procedure Note Date of Service: 12/21/16 Narrative: Vital Signs - Last Taken Temp 36.4 C L 12/21/16 13:15 Pulse 99 12/21/16 13:15 Resp 18 12/21/16 13:15 BP 125/99 12/21/16 13:15 Pulse Ox 99 12/21/16 13:15 O2 Oxygen Delivery Method Room Air 12/21/16 15:45 ANESTHESIA PROCEDURE NOTE Date of Procedure: 12/21/2016 Time of procedure: 1405. Performed by: LAINE Cameron CRNA, MSN Emergency Medcl Emt: Beata Kimball RN. Preprocedure diagnosis: Left knee surgery pain relief. Post procedure diagnosis: Same. Procedure: Left Femoral nerve block. Indications: Post left patella resurfacing and probably exchange surgery pain relief. Findings: See below. Details of the procedure: The patient was brought to OR #3 and placed in the supine position. The patient was prepped with chlorhexidine and using ultrasound guidance the left femoral nerve and artery were identified and lidocaine 1% was infiltrated to the skin of the intended injection site. Under ultrasound guidance the femoral nerve was approached until a shoulder/arm response was identified on nerve stimulator. Once the stimulator response was effective at less than 0.5 mV and greater than 0.3 mV the femoral nerve was surrounded with 30 mL bupivacaine 0.5% with 1-200,000 epinephrine. Please see radiology/ultrasound report for details and images of the procedure. EBL: 0 Fluids: N/A. Specimen: N/A. Post procedure condition: The patient tolerated the procedure well. No complications were noted. Thank you for this consultation. Tanner Colvin CRNA, ARNP, MSN
[2016-12-21] MEDS ORDERED: oxyCODONE HCL/ACETAMINOPHEN 1 TAB TABLET PO PRN (15:56)
[2016-12-21] MEDS ORDERED: MAGNESIUM HYDROXIDE 30 ML UDC PO PRN (15:56)
[2016-12-21] MEDS ORDERED: MAG HYDROX/ALUMINUM HYD/SIMETH 30 ML UDC PO PRN (15:56)
[2016-12-21] MEDS ORDERED: HYDROmorphone HCL 1 MG/ML DISP.SYRIN IV PRN (15:56)
[2016-12-21] MEDS ORDERED: ACETAMINOPHEN 500 MG TABLET PO PRN (15:56)
[2016-12-21] MEDS ORDERED: ZOLPIDEM TARTRATE 5 MG TABLET PO PRN (15:56)
[2016-12-21] MEDS ORDERED: ONDANSETRON HCL/PF 2 MG/ML VIAL IV PRN (15:56)
[2016-12-21] MEDS ORDERED: PROMETHAZINE HCL 5 MG in DEXTROSE 5 % IN WATER 50 ML IV PRN ×2 (15:56)
[2016-12-21] MEDS ORDERED: ALBUTEROL SULFATE 2.5 MG/3 ML VIAL.NEB IH PRN (15:59)
[2016-12-21] MEDS ORDERED: MOMETASONE FUROATE 120 SPRAY INHALER NS SCH (16:00)
--- NOTE | 2016-12-21 16:08 | OR ---
Operative Report - Dictated Report Narrative: Date: 12/21/2016 Preoperative diagnosis: Status post total knee arthroplasty with left patella degenerative joint disease, instability left knee. Postoperative diagnosis: Status post total knee arthroplasty with left patella degenerative joint disease, instability left knee. Procedure: Patellar resurfacing left knee, exchange of polyethylene left total knee arthroplasty. Surgeon: Evaristo Ferreira M.D. Transit Department Clerk: Darryl Goldman PA-C Anesthesia: Spinal with regional block and local periarticular joint injection. Complications: None Specimens: Prior polyethylene for disposal. Estimated blood loss: Minimal. Tourniquet time: 36 Minutes at 350 millimeters of mercury. Retained implants: 7 by 12 millimeter posterior stabilized cross-linked rotating platform Attune tibial insert. 35 millimeter medialized patella button. Indications: Mrs. Scott is a 61-year-old female who presenting with a left total knee arthroplasty by an outside surgeon and continued to have complaints of anterior knee pain. She did not have a patella resurfacing and had some noted instability at all flexion points including recurvatum. This patient was followed in my clinic for period of time with significant complaints of anterior knee pain consistent with arthritic changes. She had failed conservative measures including, but not limited to, activity modification, passage of time, medications, and other conservative measures. Patient wished to proceed with surgical treatment. The risks, benefits, and alternatives were discussed in clinic. The risks of , blood clots, bleeding, infection, nerve/tendon blood vessel/ injury, malposition of components, intraoperative fracture, postoperative limited range of motion, persistent pain, failure of components, and need for additional procedures. Patient wished to proceed consent was obtained after answering all questions. Procedure: After marking the correct extremity on the floor, the patient was taken to the operating room. A timeout was performed. IV antibiotics consisting of vancomycin secondary to a history of MRSA as well as Ancef were administered prior to the procedure. A regional followed by spinal anesthetic was induced by anesthesia, per my request, on the operative table with all bony prominences well-padded. Patrick catheter was placed, and a bump was placed under the operative side buttock. SCDs and SWATI hose were utilized on the nonoperative leg. A well-padded tourniquet was applied to the operative thigh. The operative leg was then pre-scrubbed with rory lozada prepped, and draped in a standard sterile fashion. After exsanguinating the extremity with an Esmarch bandage, the tourniquet was inflated. After marking out the anterior knee for standard incision centered over the patella, the skin was incised and dissected down to the joint retinaculum. The joint retinaculum was marked out as well as the horizontal axis of the patella, and a standard medial parapatellar arthrotomy was then made. The most proximal aspect of the quadriceps tendon and the patella tendon insertion were protected from release. A partial synovectomy was performed as well as a resection of the infrapatellar fat pad. The distal femoral fat pad proximal to the trochlea was also resected using cautery. The soft tissues were elevated off the medial aspect of the proximal tibia using a Nieto elevator ensuring that we did not transect the medial collateral ligament. Upon initial evaluation range of motion was approximately 10 degrees of hyperextension to 120 degrees of flexion. There were signs of advanced arthrosis in the patella. The knee was hyperflexed and the patella was tucked laterally. The prior polyethylene was noted to be a size 6 and at all flexion points there was greater than 4-5 mm of gapping both medially and laterally. It was noted recurvatum with impingement of the post on to the trochlea. This polyethylene was then removed and a series trials up to size 12 were utilized which found that she was able to reach full extension and had improved stability at all flexion points. She had range of motion proximal 0-120. The patella was then prepared. The initial thickness was 21 millimeters. This was reamed down to 12 millimeters parallel to the anterior surface of the patella. It was sized out to a size 35 medialized patella button. This was then drilled and trialed. Without any medial restraint the patella tracked appropriately and did not sublux or dislocate. At this point, it was felt these were the appropriate sized implants, and all trials were removed. The standard periarticular joint injection consisting of ropivacaine, Toradol, and epinephrine were injected into the periarticular joint tissues. The bony surfaces were thoroughly irrigated with a pulsatile- suction saline irrigation device. The bony surfaces were then dried in preparation for placement of the implants. The cement was vacuum mixed per the typesetter apprentice's instructions. The cement was placed on the dry bony surfaces and posterior aspect of the implant. The implant compressed in the place. At this point anesthesia administered tranexamic acid per protocol intravenously. The knee was placed in extension with axial loading with the trial insert while the cement cured. Once the cement cured, all remaining extruded cement was removed. Final range of motion was approximately 0 to 120 degrees. The knee was again thoroughly irrigated with pulsatile saline lavage. The knee was then placed over a bump and the arthrotomy was closed with interrupted #1 Vicryl after thoroughly irrigating the joint. The deep and subcutaneous tissues were closed with interrupted oh and 3-0 Vicryl respectively. Skin was closed with a running subcutaneous 3-0 Monocryl and Prineo Dermabond dressing. 4 x 4's, Sof- Rol, and a full leg Kan wrap were applied. All sponge, needle, blade, and instrument counts were correct prior to closing the wounds. Postoperative condition: The patient was awoken and transferred to the postanesthesia care unit in stable condition. Plan is to be admitted to the inpatient medical/surgical floor postoperatively for 24 hours of IV antibiotics , physical therapy, occupational therapy, and medical comanagement. Patient will be weightbearing as tolerated with range of motion as tolerated. DVT prophylaxis will be with SCDs, SWATI hose, and pharmacological anticoagulation. Anticipated hospital stay is approximately 2-4 days.
[2016-12-21] MEDS ORDERED: ALBUTEROL SULFATE 2.5 MG/3 ML VIAL.NEB IH ONE (16:45)
[2016-12-21] MEDS: DEXTROSE 5%-LACTATED RINGERS 1,000 ML IV PRN (17:13)
[2016-12-21] MEDS: KETOROLAC TROMETHAMINE 15 MG/ML VIAL IV SCH ×2 (18:12→22:44)
[2016-12-21] MEDS: FLUTICASONE/SALMETEROL 14 PUFF DISK.W.DEV IH SCH (20:20)
[2016-12-21] MEDS: PANTOPRAZOLE SODIUM 40 MG TABLET.EC PO SCH (20:21)
[2016-12-21] MEDS: SIMVASTATIN 5 MG TABLET PO SCH (20:22)
[2016-12-21] MEDS: ASPIRIN 325 MG TABLET.DR PO SCH (20:22)
[2016-12-21] MEDS: SENNOSIDES/DOCUSATE SODIUM 1 TAB TABLET PO SCH (20:22)
[2016-12-21] MEDS: MORPHINE SULFATE 15 MG TABLET.SA PO SCH (20:31)
[2016-12-21] MEDS: HYDROcodone/ACETAMINOPHEN 1 EACH TABLET PO PRN (20:31)
[2016-12-22] MEDS: DEXTROSE 5%-LACTATED RINGERS 1,000 ML IV PRN (00:56)
[2016-12-22] MEDS ORDERED: VANCOMYCIN HCL 1 GM in DEXTROSE 5 % IN WATER 250 ML IV SCH ×2 (01:40)
[2016-12-22] MEDS: KETOROLAC TROMETHAMINE 15 MG/ML VIAL IV SCH ×4 (04:58→23:06)
[2016-12-22] MEDS: HYDROcodone/ACETAMINOPHEN 1 EACH TABLET PO PRN ×4 (07:40→23:05)
[2016-12-22] MEDS: PANTOPRAZOLE SODIUM 40 MG TABLET.EC PO SCH ×2 (07:42→21:21)
--- NOTE | 2016-12-22 08:11 | PN ---
Subjective - Date and Time Seen Date: 12/22/16 Time: 08:10 Subjective Narrative: Subjective: Reports mild pain. Was able to get to the side of the bed with therapy. Pain is well-controlled. Voiding without any complications. Tolerating by mouth intake. Denies any nausea or vomiting. Denies calf pain. Slept well. Physical exam: Alert and oriented to person, place and time Left lower Extremity: Palpable dorsalis pedis pulse. Sensation grossly intact to light touch. Dressings clean and dry. Able to flex and extend ankle and toes. No excessive drainage. Calf and thigh are soft and nontender. Assessment: Postop day 1 status post left patellar resurfacing and polyethylene exchange of total knee arthroplasty. Plan: Continue with physical and occupational therapy weightbearing as tolerated. Continue with anticoagulation. 24 hours postoperative prophylactic antibiotics. Pain control with goal to rely on oral medications. Continue bowel regimen. Will need 6 weeks with walker or assitive device to protect joint while ambulating during the recovery process. Discharge planning. Discontinue Patrick catheter. Objective - Vitals Vitals: Last Vital Signs Temp 36.8 C 12/22/16 04:45 Pulse 70 12/22/16 04:45 Resp 16 12/22/16 04:45 BP 112/71 12/22/16 04:45 Pulse Ox 98 12/22/16 04:45 Cauti Physician Documentation - Urinary Catheter Management Urethral (Patrick) Date of Insertion: 12/21/16 Time of Insertion: 14:45 Assessment/Plan - Problems/Diagnosis (1) S/P total knee arthroplasty Problem: Acute (2) Asthma Problem: Chronic (3) Hyperlipidemia Problem: Chronic (4) Hypertension Problem: Chronic Qualifiers: (5) OCD (obsessive compulsive disorder) Problem: Chronic (6) Obesity Problem: Chronic (7) Urinary incontinence Problem: Chronic
[2016-12-22] MEDS: FLUTICASONE/SALMETEROL 14 PUFF DISK.W.DEV IH SCH ×2 (09:29→21:20)
[2016-12-22] MEDS: ASPIRIN 325 MG TABLET.DR PO SCH ×2 (09:30→21:20)
[2016-12-22] MEDS: TIOTROPIUM BROMIDE 5 CAP INHALER IH SCH (09:30)
[2016-12-22] MEDS: amLODIPine BESYLATE 10 MG TABLET PO SCH (09:30)
[2016-12-22] MEDS: MORPHINE SULFATE 15 MG TABLET.SA PO SCH ×2 (09:35→21:20)
[2016-12-22] MEDS: SENNOSIDES/DOCUSATE SODIUM 1 TAB TABLET PO SCH (21:21)
[2016-12-22] MEDS: SIMVASTATIN 5 MG TABLET PO SCH (21:21)
[2016-12-22] MEDS: diphenhydrAMINE HCL 50 MG/ML VIAL IV PRN (23:10)
[2016-12-23] MEDS: HYDROcodone/ACETAMINOPHEN 1 EACH TABLET PO PRN ×3 (03:18→12:59)
[2016-12-23] MEDS: diphenhydrAMINE HCL 50 MG/ML VIAL IV PRN (03:22)
[2016-12-23 03:40] VITALS: BP 127/71
[2016-12-23] MEDS: KETOROLAC TROMETHAMINE 15 MG/ML VIAL IV SCH ×2 (05:25→11:01)
[2016-12-23] MEDS: PANTOPRAZOLE SODIUM 40 MG TABLET.EC PO SCH (07:01)
[2016-12-23] MEDS: MORPHINE SULFATE 15 MG TABLET.SA PO SCH (08:36)
[2016-12-23] MEDS: TIOTROPIUM BROMIDE 5 CAP INHALER IH SCH (08:36)
[2016-12-23] MEDS: amLODIPine BESYLATE 10 MG TABLET PO SCH (08:37)
[2016-12-23] MEDS: ASPIRIN 325 MG TABLET.DR PO SCH (08:37)
[2016-12-23] MEDS: FLUTICASONE/SALMETEROL 14 PUFF DISK.W.DEV IH SCH (08:37)
--- NOTE | 2016-12-23 10:26 | DS ---
(1) S/P total knee arthroplasty Problem: Acute (2) Asthma Problem: Chronic (3) Hyperlipidemia Problem: Chronic (4) Hypertension Problem: Chronic Qualifiers: (5) OCD (obsessive compulsive disorder) Problem: Chronic (6) Obesity Problem: Chronic (7) Urinary incontinence Problem: Chronic Description of Stay: Mrs. Scott was admitted to the floor after undergoing patella resurfacing and polyethylene exchange of left total knee arthroplasty. Tolerated this well. Was admitted to the floor postoperatively for 24 hours of IV antibiotics, pain control, medical comanagement, and occupational and physical therapy. OT and PT were consulted to assist with activities of daily living and ambulation. Was made weightbearing as tolerated with range of motion as tolerated. Pain was initially controlled with IV regimen. This was transitioned to oral once tolerating a by mouth intake. Was resumed on home diet and medications. Had a Patrick catheter inserted and the operating room which was discontinued on postoperative day 1. Aspirin, SCD and SWATI hose were utilized for DVT prophylaxis. Vital signs remained stable to the hospital course. Physical examination throughout the hospital course showed an extremity that had sensation that was intact to light touch, palpable pulses, a benign wound, motor intact to the toes, ankle, and knee. Knee range of motion was approximately 0 degrees to 60 degrees. Once an oral pain regimen was tolerated and physical therapy goals were met, it was felt that they were stable for discharge to home. Instructions: Continue with weightbearing as tolerated and range of motion as tolerated. She is okay to shower as long as there is no drainage from wound. If there is any drainage from the wound she is instructed to keep the wound clean and dry. There is drainage she should cover with dry gauze and tape. Change every 2-3 days as needed. Cover wound while showering. Continue with physical therapy. Resume home diet. Report any fever over 101.5 Fahrenheit, uncontrolled pain, increased drainage, foul odor of drainage, new or increased calf pain or shortness of breath, or any other significant complaints. A 325mg twice a day aspirin for DVT prophylaxis. Continue with SWATI hose on the operative extremity until instructed otherwise. No driving until instructed otherwise. Follow up in approximately 10-14 days. Procedures Performed: see notes below List Procedures: Left patellar resurfacing, left total knee exchange of polyethylene Discharge Disposition: Home self care Disposition: Home self-care Condition: Good Discharge Activity: Activity as tolerated, Weight bearing Discharge Diet: General/regular food Referrals: Glenis Truong ARNP [Primary Care Provider] - Additional Patient Instructions (free text): Physical Therapy at [facility] in [place] on December 24 at 4:00 PM. Follow-up in the office with Dr. Ferreira on Wednesday01/05/17@1:00pm. Prescriptions (Any new or edited meds): HYDROcodone/ACETAMINOPHEN [[place] 5-325] 2 each PO Q4H PRN #90 tablet PRN Reason: Pain Morphine Sulfate [Ms Contin] 15 mg PO Q12H #20 tablet.sa Complete Home Medications List: Complete Home Medication List: Albuterol Sulfate [Albuterol Sulfate 2.5 MG/3 ML] 2.5 mg IH QID PRN 12/18/16 Budesonide/Formoterol Fumarate [Symbicort 160-4.5 Mcg Inhaler] 10.2 gm IH BID PRN 12/18/16 Ibuprofen 200 mg PO PRN 12/18/16 Lovastatin 10 mg PO HS 12/18/16 Mometasone Furoate [Nasonex] 2 spray NS PRN 12/18/16 Pantoprazole Sodium [Protonix] 40 mg PO BID 12/18/16 Tiotropium Brusett [Spiriva] 1 cap IH DAILY 12/18/16 amLODIPine BESYLATE [Norvasc] 10 mg PO DAILY 12/18/16 Aspirin [Aspirin Enteric Coated] 325 mg PO BID tablet. 12/23/16 HYDROcodone/ACETAMINOPHEN [[place] 5-325] 2 each PO Q4H PRN #90 tablet 12/23/16 Morphine Sulfate [Ms Contin] 15 mg PO Q12H #20 tablet. 12/23/16 Sennosides/Docusate Sodium [Senokot-S] 2 tab PO HS tablet 12/23/16
== END 2016-12-23 14:20 | disposition home or self-care (01) | DRG 465 ==
LOC: MS 10:01
PROVIDERS: ADMIT Orthopaedic Surgery; ATTEND Orthopaedic Surgery
PROC: 0SUD09C Supplement Left Knee Joint with Liner, Patellar Surface, Open Approach (ICD-10-PCS; 2016-12-21)
PROC: 0SPD09Z Removal of Liner from Left Knee Joint, Open Approach (ICD-10-PCS; principal; 2016-12-21 15:00)
DX: T84.033A Mechanical loosening of internal left knee prosthetic joint, initial encounter (principal); Y79.2 Prosthetic and other implants, materials and accessory orthopedic devices associated with adverse incidents; I10 Essential (primary) hypertension; E78.5 Hyperlipidemia, unspecified; J44.9 Chronic obstructive pulmonary disease, unspecified; J45.909 Unspecified asthma, uncomplicated; Z86.14 Personal history of Methicillin resistant Staphylococcus aureus infection; Z79.82 Long term (current) use of aspirin

== ENCOUNTER 2017-03-29 08:14 | Inpatient (IN) | payer MEDICARE, MEDICAID ==
[~2017-03-29 08:14] MED LIST changes: -ROPIVACAINE HCL/PF 100 MG, EPINEPHrine 0.2 MG, KETOROLAC TROMETHAMINE 30 MG in NORMAL S... IJ PRN; +ROPIVACAINE HCL/PF 100 MG, KETOROLAC TROMETHAMINE 30 MG, EPINEPHrine 0.2 MG in NORMAL S... IJ PRN; +TRANEXAMIC ACID 1,000 MG in NORMAL SALINE 100 ML IV PRN; -VANCOMYCIN HCL 1 GM in DEXTROSE 5 % IN WATER 250 ML IV PRN
[2017-03-29] MEDS ORDERED: RINGER'S SOLUTION,LACTATED 700 ML IV ONE (09:40)
[2017-03-29] MEDS ORDERED: RINGER'S SOLUTION,LACTATED 1,000 ML IV ONE ×2 (10:00→11:45)
[2017-03-29] MEDS ORDERED: FAMOTIDINE 20 MG in DEXTROSE 5 % IN WATER 100 ML IV ONE ×2 (10:31)
[2017-03-29] MEDS ORDERED: ACETAMINOPHEN 500 MG TABLET PO PRN (11:47)
[2017-03-29] MEDS ORDERED: HYDROmorphone HCL 1 MG/ML DISP.SYRIN IV PRN (11:47)
[2017-03-29] MEDS ORDERED: MAG HYDROX/ALUMINUM HYD/SIMETH 30 ML UDC PO PRN (11:47)
[2017-03-29] MEDS ORDERED: PROMETHAZINE HCL 5 MG in DEXTROSE 5 % IN WATER 50 ML IV PRN ×2 (11:47)
[2017-03-29] MEDS ORDERED: ZOLPIDEM TARTRATE 5 MG TABLET PO PRN (11:47)
[2017-03-29] MEDS ORDERED: ONDANSETRON HCL/PF 2 MG/ML VIAL IV PRN (11:47)
[2017-03-29] MEDS ORDERED: MAGNESIUM HYDROXIDE 30 ML UDC PO PRN (11:47)
[2017-03-29] MEDS ORDERED: diphenhydrAMINE HCL 50 MG/ML VIAL IV PRN (11:47)
[2017-03-29] MEDS ORDERED: FLUTICASONE/SALMETEROL 14 PUFF DISK.W.DEV IH PRN (11:49)
--- NOTE | 2017-03-29 11:53 | OR ---
Operative Report - Dictated Report Narrative: Date: 03/29/2017 Preoperative diagnosis: Right hip degenerative joint disease. Postoperative diagnosis: Right hip degenerative joint disease. Procedure: Right Total hip arthroplasty. (Please add a 22 modifier due to morbid obesity resulting in increased difficulty of the case, increased blood loss, increased surgical time, need for additional assistance, and difficulty with visualization) Surgeon: Evaristo Ferreira M.D. Launchman: Darryl Goldman PA-C Anesthesia: Spinal and local periarticular joint injection. Complications: None Specimens: Bone for disposal. Estimated blood loss: 250 milliliters. Retained implants: Depuy Whiteside size 6 femoral stem high offset. Size 54 millimeter ouside diameter 3-hole Fontana Gription acetabular cup. 54 millimeter outside by 36 millimeter inside diameter highly cross-linked acetabular liner. 36 millimeter diameter +5 millimeter cobalt chromium femoral head. Cancellous 6.5mm screw 30 millimeter length x 2 Indications: Mrs. Scott is a 61-year-old female who has had long-standing right hip pain and arthrosis. This patient was followed in my clinic for period of time with significant complaints of right hip pain consistent with arthritic changes. She failed conservative measures including but not limited to activity modification, passage of time, medications, and other conservative measures. Patient wished to proceed with surgical treatment. The risks, benefits, and alternatives were discussed in clinic. The risks of , blood clots, bleeding, infection, nerve/tendon blood vessel/ injury, malposition of components, dislocation and/or instability of joint, intraoperative fracture, postoperative limited range of motion, persistent pain, failure of components, and need for additional procedures. Patient wished to proceed. Consent was obtained after answering all questions. Procedure: After marking the correct extremity on the floor, the patient was taken to the operating room. A timeout was performed. IV antibiotics consisting of Ancef were administered prior to the procedure. A spinal anesthetic was induced by anesthesia. A Patrick catheter was inserted. The patient was then transitioned to a lateral position on a well-padded pegboard. An axillary roll was placed. The head was in neutral position. The non- operative down leg was well-padded with SCD and SWATI hose in place. The arms were supported and padded to protect from any undue pressure on the bony prominences and nerves. A well-padded anterior and posterior pelvic and chest posts were secured in order to maintain a stable position of the pelvis. This was placed so that the pelvis was perpendicular to the floor. The body was in line with the pelvis. Once it was felt that we had protected all the bony prominences and the patient was well secured with a safety belt as well, the leg was pre-scrubbed with alcohol, prepped and draped in a standard sterile fashion. A standard anterior lateral hip incision was marked out over the greater trochanter. Ioban drapes were then placed. The skin incision was then made. Sharp dissection with a scalpel utilizing cautery for hemostasis was carried out down to the gluteus and iliotibial band fascia. This was split in line with the skin incision. The greater trochanter bursa was excised. The anterior and posterior margins of the abductor tendon were identified. The anterior 1/2-1/3 of the tendon was tagged and reflected off the greater trochanter leaving a sleeve of tendon for repair at the completion of the case. This exposed the underlying hip joint capsule. A limb length stitch was placed in the skin and referencedd off a pari on the greater trochanter for evaluation of intraoperative limb lengths. An inverted T-type capsulotomy was made extending this up to the brim of the acetabulum. Using Homans to assist with elevation of the soft tissues off the anterior, superior, and inferior aspects of the femoral neck, the hip was then placed in a figure 4 position and the femoral head was dislocated. With the leg in an externally rotated and adducted position, the cutting flag was utilized in order to pari for a standard femoral neck cut approximately a fingerbreadth above the level of the lesser trochanter. This was done with reference to pre-operative films and overall alignment. This was done while protecting the surrounding soft tissues with Homans. The femoral head was then removed and sized for guidance on preparation of the acetabulum. It was noted that there was loss of articular cartilage on both the femoral head and weightbearing portions of the acetabulum. We then returned the leg to the table and turned our attention to the acetabulum. While protecting the surrounding soft tissues, the labrum and remaining tissue in the fovea were excised using a scalpel and cautery. A series of reamers up to size 54 millimeter were utilized to prepare the acetabulum. The final reamer had good purchase and exposed the bleeding subchondral bone. The acetabulum was then thoroughly irrigated ensuring that all bony and cartilaginous materials were removed, and the final acetabular shell was impacted into place. This was placed in approximately 45 degrees of abduction and 20 degrees of anteversion utilizing the outrigger and body axis for alignment. This had a good press fit. 2 6.5mm cancellous screw was placed in the superior posterior quadrant of the acetabulum. The shell was then thoroughly irrigated and the final polyethylene was impacted into place ensuring that it seated completely. This was then protected with a sponge while we returned our attention to the femur. With the leg in a figure 4 position, utilizing Homans for soft tissue protection , a box cutting osteotome, followed by Charnley awl, followed by serial reamers and broaches were utilized in order to prepare the femur. It was found that a size 6 broach gave good axial and rotational stability. The calcar reamer was utilized in order to clean up the cut edges. The proximal femur was visualized to ensure that there were no signs of fracture. A series of heads and necks were trialed. It was found that a high offset neck and a + 5 femoral head gave good overall stability. There was minimal longitudinal instability. With the leg in the position of sleep, the femoral head was well covered. Hip range of motion was able to reach full extension and external rotation to greater than 75 degrees prior to impingement along the posterior acetabulum. The hip was able to be flexed to greater than 90 degrees with internal rotation greater than 60 degrees prior to anterior impingement. The limb lengths were near equal based on comparison to the contralateral side and the prior placed limb length stitch. At this point it was felt these were the appropriately sized femoral components as well as neck and femoral head. The trial implants were removed. The femur was thoroughly irrigated. The final implants were impacted into place, and the hip was reduced. After ensuring that there was no damage to the proximal femur , the standard periarticular joint injection of ropivacaine, Toradol, and epinephrine were injected into the joint capsule and surrounding soft tissues. Anesthesia then administered intravenous tranexamic acid. The capsule was repaired with a single interrupted #1 Vicryl. The abductor tendon was repaired to the greater trochanter utilizing #5 Ethibond through drill holes. This was oversewn with #1 Vicryl. The fascia was closed with interrupted #1 Vicryl. The wounds were thoroughly irrigated as we closed in layers. The deep and subcutaneous fat layers were closed with 0 and 3-0 Vicryl respectively. The subcutaneous tissue was closed with a running 3-0 Vicryl and kelton. All sponge, needle, blade, and instrument counts were correct prior to closing the wounds. Sterile dressings consisting of Xeroform, 4 x 4's, ABD, and tape were applied. The patient was awoken and transferred to her hospital bed and then to the postanesthesia care unit in stable condition. Postoperative condition: The plan is to admit to the medical/surgical inpatient floor postoperatively. There will be a projected 2 to 4 day hospital stay. Postoperatively 24 hours of IV antibiotics, pain control, physical therapy, occupational therapy, and medical comanagement will be utilized. Patient will be weightbearing as tolerated with anterior hip precautions. Postoperative films will be obtained in the recovery room.
[2017-03-29] MEDS: KETOROLAC TROMETHAMINE 15 MG/ML VIAL IV SCH ×2 (13:08→19:03)
[2017-03-29] MEDS: ceFAZolin SODIUM 1 GM in DEXTROSE 5 % IN WATER 100 ML IV SCH ×4 (13:09→19:08)
[2017-03-29] MEDS: DEXTROSE 5%-LACTATED RINGERS 1,000 ML IV PRN ×2 (13:13→18:20)
[2017-03-29] MEDS: HYDROcodone/ACETAMINOPHEN 1 EACH TABLET PO PRN ×2 (17:13→21:23)
[2017-03-29] MEDS ORDERED: DEXTROSE 5%-LACTATED RINGERS 500 ML IV ONE (17:34)
[2017-03-29] MEDS: SIMVASTATIN 5 MG TABLET PO SCH (21:24)
[2017-03-29] MEDS: PANTOPRAZOLE SODIUM 40 MG TABLET.EC PO SCH (21:24)
[2017-03-29] MEDS: SENNOSIDES/DOCUSATE SODIUM 1 TAB TABLET PO SCH (21:24)
[2017-03-30] MEDS: KETOROLAC TROMETHAMINE 15 MG/ML VIAL IV SCH ×4 (00:25→18:34)
[2017-03-30] MEDS: ceFAZolin SODIUM 1 GM in DEXTROSE 5 % IN WATER 100 ML IV SCH ×2 (01:00)
[2017-03-30] MEDS: HYDROcodone/ACETAMINOPHEN 1 EACH TABLET PO PRN ×5 (03:00→22:42)
[2017-03-30 06:26] LABS: Hematocrit 27.8 % (37.0-47.0); Hemoglobin 8.8 gm/dL (12.5-16.0); Mean Cell Volume 82.7 fl (78-100); Mean Corpuscular Hemoglobin 26.2 pg (27-31); Mean Corpuscular Hgb Conc 31.7 g/dl (32-36); Mean Platelet Volume 9.1 fl (6.0-9.5); Platelet Count 270 K/mm3 (150-450); Red Blood Count 3.36 M/mm3 (4.2-5.4); Red Cell Distribution Width 16.6 % (11.5-14.0); White Blood Count 6.9 K/mm3 (4.0-10.5)
[2017-03-30 06:37] LABS: Anion Gap 6.4 mmol/L (6.8-13.8); BUN/Creatinine Ratio 10.7 (9.0-21.6); Calcium * 8.5 mg/dL (7.9-10.9); Carbon Dioxide 31.4 mmol/L (24-32.6); Estimated Creat Clear 42.7; Potassium 3.8 mmol/L (3.4-4.6)
[2017-03-30] MEDS: PANTOPRAZOLE SODIUM 40 MG TABLET.EC PO SCH ×2 (07:28→20:09)
--- NOTE | 2017-03-30 08:07 | PN ---
Subjective - Date and Time Seen Date: 03/30/17 Time: 08:04 Subjective Narrative: Subjective: Reports increased pain compared to prior total hip. Still sitting in the bed this morning. Pain is well-controlled. Tolerating by mouth intake. Denies any nausea or vomiting. Denies calf pain. Slept well. Physical exam: Alert and oriented to person, place and time Right lower Extremity: Palpable dorsalis pedis pulse. Sensation grossly intact to light touch. Dressings clean and dry. Able to flex and extend ankle and toes. No excessive drainage. Calf and thigh are soft and nontender. Assessment: Postop day 1 status post right total hip arthroplasty. Plan: Continue with physical and occupational therapy weightbearing as tolerated. Continue with anticoagulation. 24 hours postoperative prophylactic antibiotics. Pain control with goal to rely on oral medications. Continue bowel regimen. Will need 6 weeks with walker or assitive device to protect joint while ambulating during the recovery process. Discharge planning. Discontinue Patrick catheter. Repeat labs in a.m. Objective - Vitals Vitals: Last Vital Signs Temp 36.6 C 03/30/17 06:18 Pulse 88 03/30/17 06:18 Resp 12 03/30/17 06:18 BP 124/72 03/30/17 06:18 Pulse Ox 96 03/30/17 06:18 - Abnormal Lab Findings Abnormal Lab Findings: Abnormal Lab Results 03/30/17 03/30/17 Range/Units 06:00 06:00 RBC 3.36 L (4.2-5.4) M/mm3 Hgb 8.8 L (12.5-16.0) gm/dL Hct 27.8 L (37.0-47.0) % MCH 26.2 L (27-31) pg MCHC 31.7 L (32-36) g/dl RDW 16.6 H (11.5-14.0) % Chloride 107 H (97-106) mmol/L Anion Gap 6.4 L (6.8-13.8) mmol/L Est GFR (Non-Af Amer) 58 L (60-130) mL/min Cauti Physician Documentation - Urinary Catheter Management 2-way Urethral Date of Insertion: 03/29/17 Time of Insertion: 10:15 Assessment/Plan - Problems/Diagnosis (1) Status post total replacement of right hip Problem: Acute (2) Acute blood loss anemia Problem: Acute (3) Asthma Problem: Chronic (4) Hyperlipidemia Problem: Chronic (5) Hypertension Problem: Chronic Qualifiers: (6) OCD (obsessive compulsive disorder) Problem: Chronic (7) Obesity Problem: Chronic Qualifiers: Obesity type: due to excess calories Body mass index: BMI 45.0-49.9
[2017-03-30] MEDS: MULTIVITAMINS 1 CAP CAPSULE PO SCH (09:21)
[2017-03-30] MEDS: CALCIUM CARBONATE 500 MG TAB.CHEW PO SCH (09:21)
[2017-03-30] MEDS: amLODIPine BESYLATE 10 MG TABLET PO SCH (09:21)
[2017-03-30] MEDS: ENOXAPARIN SODIUM 40 MG/0.4 ML SYRG SC SCH (10:24)
[2017-03-30] MEDS: SIMVASTATIN 5 MG TABLET PO SCH (20:09)
[2017-03-30] MEDS: SENNOSIDES/DOCUSATE SODIUM 1 TAB TABLET PO SCH (20:09)
[2017-03-31] MEDS: KETOROLAC TROMETHAMINE 15 MG/ML VIAL IV SCH ×2 (01:53→06:59)
[2017-03-31] MEDS: HYDROcodone/ACETAMINOPHEN 1 EACH TABLET PO PRN ×4 (02:42→15:24)
[2017-03-31 06:03] LABS: Hematocrit 25.2 % (37.0-47.0); Hemoglobin 8.1 gm/dL (12.5-16.0); Mean Cell Volume 82.4 fl (78-100); Mean Corpuscular Hemoglobin 26.5 pg (27-31); Mean Corpuscular Hgb Conc 32.1 g/dl (32-36); Mean Platelet Volume 8.4 fl (6.0-9.5); Platelet Count 227 K/mm3 (150-450); Red Blood Count 3.06 M/mm3 (4.2-5.4); Red Cell Distribution Width 16.6 % (11.5-14.0); White Blood Count 6.9 K/mm3 (4.0-10.5)
[2017-03-31 06:16] LABS: Anion Gap 9.6 mmol/L (6.8-13.8); BUN/Creatinine Ratio 10.3 (9.0-21.6); Calcium * 8.5 mg/dL (7.9-10.9); Carbon Dioxide 28.9 mmol/L (24-32.6); Estimated Creat Clear 45.4; Potassium 3.5 mmol/L (3.4-4.6)
[2017-03-31] MEDS: PANTOPRAZOLE SODIUM 40 MG TABLET.EC PO SCH (06:59)
[2017-03-31] MEDS: amLODIPine BESYLATE 10 MG TABLET PO SCH (09:33)
[2017-03-31] MEDS: MULTIVITAMINS 1 CAP CAPSULE PO SCH (09:33)
[2017-03-31] MEDS: CALCIUM CARBONATE 500 MG TAB.CHEW PO SCH (09:33)
[2017-03-31] MEDS: FERROUS SULFATE 325 MG TABLET PO SCH ×2 (09:33→13:04)
[2017-03-31] MEDS: ENOXAPARIN SODIUM 40 MG/0.4 ML SYRG SC SCH (10:34)
[2017-03-31 12:37] VITALS: BP 106/58
--- NOTE | 2017-03-31 14:17 | DS ---
(1) Status post total replacement of right hip Problem: Acute (2) Acute blood loss anemia Problem: Acute (3) Asthma Problem: Chronic (4) Hyperlipidemia Problem: Chronic (5) Hypertension Problem: Chronic Qualifiers: (6) OCD (obsessive compulsive disorder) Problem: Chronic (7) Obesity Problem: Chronic Qualifiers: Obesity type: due to excess calories Body mass index: BMI 45.0-49.9 (8) Urinary incontinence Problem: Chronic Description of Stay: Mrs. Scott was admitted to the floor after undergoing right total hip arthroplasty. Tolerated this well. Was admitted to the floor postoperatively for 24 hours of IV antibiotics, pain control, medical comanagement, and occupational and physical therapy. OT and PT were consulted to assist with activities of daily living and ambulation. Was made weightbearing as tolerated with range of motion as tolerated. Pain was initially controlled with IV regimen. This was transitioned to oral once tolerating a by mouth intake. Was resumed on home diet and medications. Had a Patrick catheter inserted and the operating room which was discontinued on postoperative day 1. A drain was placed intraoperatively into the knee which was discontinued on postoperative day 1. Lovenox SCD and SWATI hose were utilized for DVT prophylaxis. Vital signs remained stable to the hospital course. Serial labs were obtained which showed a final hemoglobin of 8.1 grams. BMP was reviewed and was stable. Physical examination throughout the hospital course showed an extremity that had sensation that was intact to light touch, palpable pulses, a benign wound, motor intact to the toes, ankle, and knee. Once an oral pain regimen was tolerated and physical therapy goals were met, it was felt that they were stable for discharge to home. Instructions: Continue with weightbearing as tolerated and range of motion as tolerated using anterior hip her cautions. Instructed to keep wound clean and dry until stable removal. If you note any drainage or for comfort you can cover with dry gauze and tape. Change every 2-3 days as needed. Continue with physical therapy. Resume home diet. Report any fever over 101.5 Fahrenheit, uncontrolled pain, increased drainage, foul odor of drainage, new or increased calf pain or shortness of breath, or any other significant complaints. A 325mg dialy aspirin will be started after finishing anticoagulation if not allergic. Continue with SWATI hose on the operative extremity until instructed otherwise. No driving until instructed otherwise. Follow up in approximately 10-14 days. Procedures Performed: see notes below List Procedures: Right total hip arthroplasty Discharge Disposition: Home self care Disposition: Home self-care Condition: Good Discharge Activity: Activity as tolerated, Weight bearing, Other - hip precautions Discharge Diet: Low salt, Low fat/chol Referrals: Glenis Truong ARNP [Primary Care Provider] - Additional Patient Instructions (free text): Follow up with Dr. Ferreira on March at 10:45 Am. Prescriptions (Any new or edited meds): Enoxaparin Sodium [Lovenox] 40 mg SC Q24H #7 disp.syrin HYDROcodone/ACETAMINOPHEN [[place] 5-325] 2 each PO Q4H PRN #90 tablet PRN Reason: Moderate Pain Sennosides/Docusate Sodium [Senokot-S] 2 tab PO HS #30 tablet Complete Home Medications List: Complete Home Medication List: Budesonide/Formoterol Fumarate [Symbicort 160-4.5 Mcg Inhaler] 2 puff IH BID PRN 12/18/16 Lovastatin 10 mg PO HS 12/18/16 Pantoprazole Sodium [Protonix] 40 mg PO BID 12/18/16 amLODIPine BESYLATE [Norvasc] 10 mg PO DAILY 12/18/16 Calcium Carbonate [[id number]-[id number]] 500 mg PO DAILY 03/05/17 Multivitamins [Multivitamin Santiago] 1 cap PO DAILY 03/05/17 Enoxaparin Sodium [Lovenox] 40 mg SC Q24H #7 disp.syrin 03/31/17 HYDROcodone/ACETAMINOPHEN [[place] 5-325] 2 each PO Q4H PRN #90 tablet 03/31/17 Sennosides/Docusate Sodium [Senokot-S] 2 tab PO HS #30 tablet 03/31/17 Amb Orders for Discharge: PT Evaluation and Treatment Facility: [facility], Location: Rehabilitation Services
== END 2017-03-31 15:27 | disposition home or self-care (01) | DRG 470 ==
LOC: MS 08:14
PROVIDERS: ADMIT Orthopaedic Surgery; ATTEND Orthopaedic Surgery
PROC: 0SR90JZ Replacement of Right Hip Joint with Synthetic Substitute, Open Approach (ICD-10-PCS; principal; 2017-03-29 11:30)
DX: M16.0 Bilateral primary osteoarthritis of hip (principal); Z68.42 Body mass index [BMI] 45.0-49.9, adult; D62 Acute posthemorrhagic anemia; I10 Essential (primary) hypertension; E78.5 Hyperlipidemia, unspecified; J42 Unspecified chronic bronchitis; E66.09 Other obesity due to excess calories